=== PATIENT | male | born 1945 | race Caucasian/White ===

== ENCOUNTER → 2022-03-10 | Day surgery (SDC) | payer MEDICAID ==
[~2022-03-10] VITALS: Ht 170.2 cm; Wt 73.0 kg
[~2022-03-10] MED LIST: ACETYLCHOLINE CHLORIDE INTRAOCULAR SOLUTION 1:100 ELECTROLYTE DILUENT IO ONE; ASPI-1497 PO; ATOR40TA70 PO; BALANCED SALT IRRIG SOLN 15ML ONE; BALANCED SALT IRRIG SOLN COMB1 500ML OP SCH; CIPROFLOXACIN 0.3% OPHTH SOLN 2.5ML ONE; CYCLOPENTOLATE HCL 1% OPHTH DROPS 2ML ONE; CYCLOPENTOLATE HCL 1% OPHTH DROPS 2ML RIGHTEYE ONE; FENTANYL CITRATE/PF 50MCG/ML 2ML VIAL ONE; HYALURONATE SODIUM 10 MG/ML 0.55ML SYRINGE IO ONE; LACTATED RINGERS 1,000 ML IV SCH; LEVO25TA7 PO; MIDAZOLAM HCL 2 MG/2 ML VIAL ONE; NEO/POLYMYX B SULF/DEXAMETH OPHTH OINT 3.5GM ONE; PHENYLEPHRINE HCL 10% OPHTH DROPS 5ML ONE; PHENYLEPHRINE HCL 10% OPHTH DROPS 5ML RIGHTEYE ONE; PREDNISOLONE ACETATE 1% OPHTH DROPS 5ML ONE; TETRACAINE 0.5% OPHTH DROPS 4ML ONE; TROPICAMIDE 1% OPHTH DROPS 15ML ONE; TROPICAMIDE 1% OPHTH DROPS 15ML RIGHTEYE ONE; TRYPAN BLUE 0.5 ML DISP.SYRIN IO ONE
== END | disposition home or self-care (01) ==
LOC: OR 06:33
PROVIDERS: ATTEND Ophthalmology
DX: H25.21 Age-related cataract, morgagnian type, right eye (principal); I10 Essential (primary) hypertension; E03.9 Hypothyroidism, unspecified; I25.10 Atherosclerotic heart disease of native coronary artery without angina pectoris; E78.00 Pure hypercholesterolemia, unspecified; Z79.82 Long term (current) use of aspirin; Z79.899 Other long term (current) drug therapy; Z98.890 Other specified postprocedural states; Z20.822 Contact with and (suspected) exposure to COVID-19
CPT/HCPCS: 66984; 67005; 87426; C9803; J2250; J3010; J3490; J7030; Q9957; V2632

== ENCOUNTER → 2022-05-26 | Day surgery (SDC) | payer MEDICAID ==
[~2022-05-26] VITALS: Ht 170.2 cm; Wt 72.6 kg
[~2022-05-26] MED LIST changes: -ACETYLCHOLINE CHLORIDE INTRAOCULAR SOLUTION 1:100 ELECTROLYTE DILUENT IO ONE; +BALANCED SALT IRRIG SOLN COMB1 500ML OP NR; -BALANCED SALT IRRIG SOLN COMB1 500ML OP SCH; +CYCLOPENTOLATE HCL 1% OPHTH DROPS 2ML LEFTEYE SCH; -CYCLOPENTOLATE HCL 1% OPHTH DROPS 2ML ONE; -CYCLOPENTOLATE HCL 1% OPHTH DROPS 2ML RIGHTEYE ONE; +DEXAMETHASONE 4MG/ML 1ML VIAL ONE; -FENTANYL CITRATE/PF 50MCG/ML 2ML VIAL ONE; +GLYCOPYRROLATE 0.2 MG/ML 2ML VIAL ONE; +LIDOCAINE HCL/PF 2% 20 MG/ML 10ML VIAL ONE; -MIDAZOLAM HCL 2 MG/2 ML VIAL ONE; -NEO/POLYMYX B SULF/DEXAMETH OPHTH OINT 3.5GM ONE; +ONDANSETRON HCL 4MG/2ML INJ ONE; +PHENYLEPHRINE HCL 10% OPHTH DROPS 5ML LEFTEYE SCH; -PHENYLEPHRINE HCL 10% OPHTH DROPS 5ML ONE; -PHENYLEPHRINE HCL 10% OPHTH DROPS 5ML RIGHTEYE ONE; +TROPICAMIDE 1% OPHTH DROPS 15ML LEFTEYE SCH; -TROPICAMIDE 1% OPHTH DROPS 15ML ONE; -TROPICAMIDE 1% OPHTH DROPS 15ML RIGHTEYE ONE; -TRYPAN BLUE 0.5 ML DISP.SYRIN IO ONE
[2022-05-26 06:22] LABS: CHLORIDE 110 mEq/L (98-107)
[2022-05-26 06:28] LABS: EOSINOPHILS % 4.1 % (0.0-5.0); HEMATOCRIT. 41.4 % (42.0-52.0); LYMPHOCYTES % 36.6 % (20.0-50.0); MEAN CORPUSCULAR HEMOGLOBIN 32.7 pg (28.0-32.0); MEAN CORPUSCULAR VOLUME 96.7 fL (80.0-94.0); MONOCYTES % 9.9 % (2.0-8.0); NEUTROPHILS % 48.4 % (40.0-76.0); PLATELET 164 x1000/uL (130-400); RED BLOOD CELL COUNT 4.28 mill/uL (4.7-6.1); RED CELL DISTRIBUTION WIDTH 15.5 % (11.6-14.6)
== END | disposition home or self-care (01) ==
LOC: OR 06:13
PROVIDERS: ATTEND Ophthalmology
DX: H25.89 Other age-related cataract (principal); I10 Essential (primary) hypertension; I25.10 Atherosclerotic heart disease of native coronary artery without angina pectoris; E78.5 Hyperlipidemia, unspecified; E66.9 Obesity, unspecified; E03.9 Hypothyroidism, unspecified; Z79.899 Other long term (current) drug therapy; Z98.890 Other specified postprocedural states; Z20.822 Contact with and (suspected) exposure to COVID-19
CPT/HCPCS: 36415; 66984; 80048; 85025; 87426; 93005; C9803; J1100; J2405; J3490; V2632